=== PATIENT | male | born 1960 | race American Indian/Alaskan Native ===

== ENCOUNTER 2019-06-23 19:01 | Emergency (ER) | payer OTHER ==
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
--- NOTE | 2019-06-23 21:03 | XRay Report ---
CERVICAL SPINE, 3 VIEWS INDICATION / CLINICAL INFORMATION: Neck pain. COMPARISON: None available. FINDINGS: There is severe degenerative disc disease at C5-C6. There is marked spondylitic change at this level as well as C4-C7. Posterior alignment is normal. No evidence for fracture. The visualized lung apices are clear. IMPRESSION: No evidence for fracture or traumatic malalignment. Incidental finding of degenerative di sc disease and spondylitic change, as described above. Signer Name: Sharla Melchor MD Signed: 06/23/2019 8:58 PM Workstation Name: [id number]
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
[2019-06-23 23:59] VITALS: BP 120/73
== END 2019-06-24 | disposition home or self-care (01) ==
LOC: ED 19:01
DX: M54.6 Pain in thoracic spine (principal); M54.5 Low back pain; I12.0 Hypertensive chronic kidney disease with stage 5 chronic kidney disease or end stage renal disease; E11.22 Type 2 diabetes mellitus with diabetic chronic kidney disease; N18.6 End stage renal disease; Z99.2 Dependence on renal dialysis; Z90.49 Acquired absence of other specified parts of digestive tract; V49.49XA Driver injured in collision with other motor vehicles in traffic accident, initial encounter; Y93.89 Activity, other specified; Y92.410 Unspecified street and highway as the place of occurrence of the external cause; Y99.8 Other external cause status
CPT/HCPCS: 72040

== ENCOUNTER 2020-05-28 17:10 | Emergency (ER) | payer MEDICAID, OTHER ==
[2020-05-28 17:18] VITALS: BP 203/107
--- NOTE | 2020-05-28 17:20 | Event Note ---
ED Screening Note Date of service: 05/28/20 Time: 17:19 ED Screening Note: Patient complains of blurry vision and dizziness x1 week Admits to headache History of congestive heart failure This initial assessment/diagnostic orders/clinical plan/treatment(s) is/are subject to change based on patients health status, clinical progression and re- assessment by fellow clinical providers in the ED. Further treatment and workup at subsequent clinical providers discretion. Patient/guardian urged not to elope from the ED as their condition may be serious if not clinically assessed and managed. Initial orders include: labs CT head ekg
--- NOTE | 2020-05-28 18:06 | Cat Scan Report ---
NONENHANCED CT SCAN OF THE HEAD: INDICATION / CLINICAL INFORMATION: 59 years Male; Dizziness and blurred vision. TECHNIQUE: Routine CT head without contrast. All CT scans at this location are performed using CT dos e reduction for ALARA by means of automated exposure control. COMPARISON: None. FINDINGS: BRAIN / INTRACRANIAL CONTENTS: No acute hemorrhage, mass effect, midline shift, hydrocephalus, or acu te, large territorial infarct. No chronic infarct or focal atrophy. Normal brain volume and ventricul ar/sulcal size for age. No significant white matter abnormality. CRANIOCERVICAL JUNCTION: No significant abnormality. ORBITS: No significant abnormality of visualized orbits. SINUSES / MASTOIDS: No significant abnormality of the visualized paranasal sinuses or mastoid air joshua ls. ADDITIONAL FINDINGS: None. IMPRESSION: No acute focal parenchymal lesion in the brain Signer Name: Alexandra Arevalo MD Signed: 05/28/2020 6:05 PM Workstation Name: [id number]
[2020-05-28 18:15] LABS: Basophils # (Auto) 0.1 K/mm3 (0.0-0.1); Basophils % (Auto) 1.1 % (0.0-1.8); Eosinophils # (Auto) 0.1 K/mm3 (0.0-0.4); Eosinophils % (Auto) 1.9 % (0.0-4.3); Lymphocytes # (Auto) 1.1 K/mm3 (1.2-5.4); Lymphocytes % (Auto) 17.2 % (13.4-35.0); Mean Corpuscular HGB Conc 31 % (32-34); Mean Corpuscular Volume 80 fl (84-94); Monocytes # (Auto) 0.6 K/mm3 (0.0-0.8); Monocytes % (Auto) 8.5 % (0.0-7.3); Platelet Count 314 K/mm3 (140-440); Red Blood Count 3.99 M/mm3 (3.65-5.03); Red Cell Distribution Width 18.8 % (13.2-15.2)
[2020-05-28 18:44] LABS: Calcium 8.3 mg/dL (8.4-10.2)
[2020-05-28 19:05] LABS: Chol/HDL Ratio 2.45 %
== END 2020-05-29 02:15 | disposition left against medical advice (07) ==
LOC: ED 17:10
DX: H53.8 Other visual disturbances (principal); Z53.21 Procedure and treatment not carried out due to patient leaving prior to being seen by health care provider
CPT/HCPCS: 36415; 70450; 80053; 80061; 82962; 84484; 85025; 93005